=== PATIENT | male | born 1950 | race African-American/Black ===

== ENCOUNTER 2016-07-31 16:09 | Emergency (ER) | payer MEDICARE, MEDICAID ==
[~2016-07-31] VITALS: Ht 188 cm; Wt 90.7 kg
[~2016-07-31 16:09] MED LIST: IBUPROFEN600 MG ORAL; NKM
[2016-07-31 16:56] VITALS: BP 151/94
[2016-07-31] MEDS ORDERED: Ketorolac 30mg Inj IM ONE (17:15)
[2016-07-31] MEDS ORDERED: ROBAXIN500 MG PO (17:32)
[2016-07-31] MEDS ORDERED: IBUPROFEN600 MG ORAL (17:32)
[2016-07-31 17:39] VITALS: BP 151/94
--- NOTE | 2016-07-31 23:29 | Emergency Room Report ---
History of Present Illness General Chief Complaint: Back Pain-No Injury Source: Patient Present Illness [facility] The patient is a 66-year-old male who denies medical history presenting for right-sided back pain which began 3 days prior. The patient states that he drank alcohol the night before the pain began and thinks he may have slept on the back incorrectly. The pain is described as 8/10 dull ache to the R mid back. Pt denies prior injury of the back. Pt denies N, V, F, chills, CP, SOB, numbness/tingling Allergies: Coded Allergies: CIPROFLOXACIN (Verified Allergy, Unknown, 08/07/15) PENICILLINS (Verified Allergy, Unknown, 08/07/15) Uncoded Allergies: cats (Allergy, Unknown, 08/07/15) Patient History Past Medical History: see triage record Pertinent Family History: none Reviewed Nursing Documentation: PMH: Agreed, PSxH: Agreed Nursing Documentation-PMH Past Medical History: No Stated History Hx Cardiac Problems: Yes - Bilateral hip implants Review of Systems All Other Systems: negative except mentioned in HPI Physical Exam Vital Signs Date Time Temp Pulse Resp B/P Pulse Ox O2 Delivery O2 Flow Rate FiO2 07/31/16 16:16 98.6 112 19 151/94 99 Room Air Sp02 EP Interpretation: reviewed, normal General Appearance: no apparent distress, alert, GCS 15, non-toxic Head: normocephalic, atraumatic Eyes: bilateral eye PERRL, bilateral eye normal inspection ENT: hearing grossly normal, normal pharynx, no angioedema, normal voice Neck: full range of motion, supple/symm/no masses Respiratory: chest non-tender, lungs clear, normal breath sounds, speaking full sentences Cardiovascular #1: regular rate, rhythm, no edema Cardiovascular #2: 2+ carotid (R), 2+ carotid (L), 2+ radial (R), 2+ radial (L) , 2+ dorsalis pedis (R), 2+ dorsalis pedis (L) Gastrointestinal: normal bowel sounds, non tender, soft, non-distended, no guarding, no rebound Rectal: deferred Genitourinary: normal inspection, no CVA tenderness Musculoskeletal: back normal, gait/station normal, normal range of motion, tender - TTP over R thoracic paraspinous muscles Neurologic: alert, oriented x3, responsive, motor strength/tone normal, sensory intact, speech normal Psychiatric: judgement/insight normal, memory normal, mood/affect normal, no suicidal/homicidal ideation Reflexes: 3+ bicep (R), 3+ bicep (L), 3+ tricep (R), 3+ tricep (L), 3+ knee (R) , 3+ knee (L) Skin: normal color, no rash, warm/dry, well hydrated Lymphatic: no adenopathy Medical Decision Making PA Attestation Dr. Chris is my supervising physician. Patient management was discussed with my supervising physician Diagnostic Impression: Primary Impression: Paraspinal muscle spasm ER Course The patient is a 66-year-old male who denies medical history presenting for right-sided back pain which began 3 days prior. Ddx considered include but not limited to sprain/strain, fracture, contusion, spasm PE: NAD. TTP over R thoracic paraspinous muscles. No midline TTP. No obvious deformity. Full AROM. The patient was given Toradol for pain with good relief. The patient be discharged home with a prescription for Motrin and Robaxin. ER precautions are given Last Vital Signs Date Time Temp Pulse Resp B/P Pulse Ox O2 Delivery O2 Flow Rate FiO2 07/31/16 17:39 98.6 104 19 151/94 99 Room Air Status: improved Disposition: HOME, SELF-CARE Condition: Improved Scripts Methocarbamol* (ROBAXIN*) 500 Mg Tablet 500 MG PO TID, #21 TAB 0 Refills Prov: CLARIBEL PATEL P.A. 07/31/16 Ibuprofen* (MOTRIN*) 600 Mg Tablet 600 MG ORAL Q8H Y for For Pain, #30 TAB 0 Refills Prov: DEBBIEANCLARIBEL P.A. 07/31/16 Patient Instructions: Back Pain, Adult Additional Instructions: I discussed my findings with the patient. All questions and concerns have been answered. Treatment and medication compliance have been addressed. I advised the patient that they need to follow up with PMD in 3-5 days. Return to ED if pain remains or worsens, numbness or tingling occurs, new rash is noticed, fever is noticed, or if needed for any reason. Patient verbalized understanding of discharge instructions. CLARIBEL PATEL Jul 31, 2016 23:29
== END 2016-07-31 17:40 | disposition home or self-care (01) ==
LOC: EMR 17:10
DX: M62.830 Muscle spasm of back (principal); M54.9 Dorsalgia, unspecified; Z88.0 Allergy status to penicillin; Z88.1 Allergy status to other antibiotic agents
CPT/HCPCS: 96372; 99283; J1885

== ENCOUNTER 2017-07-10 14:09 | Emergency (ER) | payer MEDICARE, MEDICAID ==
[~2017-07-10] VITALS: Ht 188 cm; Wt 97.5 kg
[~2017-07-10 14:09] MED LIST changes: +ROBAXIN500 MG PO
[2017-07-10 14:40] VITALS: BP 155/92
[2017-07-10] MEDS ORDERED: LIDODERM700 M1 TOPIC (15:18)
[2017-07-10] MEDS ORDERED: ROBAXIN-750750 MG PO (15:18)
[2017-07-10] MEDS ORDERED: LORazepam 0.5mg tab ORAL ONE (15:45)
[2017-07-10 16:00] VITALS: BP 106/64
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
== END 2017-07-10 16:00 | disposition home or self-care (01) ==
LOC: EMR 15:57
DX: M62.838 Other muscle spasm (principal); M54.2 Cervicalgia; R51 Headache; Z88.0 Allergy status to penicillin
CPT/HCPCS: 99283